=== PATIENT | male | born 1970 | race Caucasian/White ===

== ENCOUNTER 2017-05-15 15:47 | Emergency (ER) | payer OTHER ==
--- NOTE | 2017-05-15 16:36 | ERNOTE ---
GI Bleeding/Rectal Pain ER Date of Service: 05/15/17 Presenting Symptoms: rectal bleeding Time Seen by Provider: 05/15/17 16:17 Source: patient Exam Limitations: no limitations Immunizations: IMMUNIZATION HX Immunizations Up to Date Yes History of Influenza Vaccine No Allergies/Adverse Reactions: Allergies clindamycin Allergy (Verified 05/15/17 16:05) rash Home Medications: HOME MEDICATIONS Allopurinol 300 mg PO PRN 10/05/12 [Last Taken Unknown] Metformin HCl 750 mg PO DAILY 10/05/12 [Last Taken Unknown] Aspirin [Aspirin EC] 81 mg PO DAILY 05/15/17 [Last Taken Unknown] Atorvastatin Calcium [Lipitor] 10 mg PO DAILY 05/15/17 [Last Taken Unknown] Omnicef 05/15/17 [Last Taken Unknown] Phenylephrine HCl/[place] Butter [Preparation H Suppository] 1 each RC BID #10 supp.rect 05/15/17 [Last Taken Unknown] Narrative: 47 yo WM who noted yesterday some BRB per rectum after BM. Occurred today as well. Had had hemrrhoids in the past with similar episode. Denies any pain. Review of Systems - Review of Systems Constitutional: Present: no symptoms reported Respiratory: Present: no symptoms reported Cardiology: Present: no symptoms reported Gastrointestinal/Abdominal: Present: no symptoms reported Neurological: Present: no symptoms reported - Patient's Past Medical History Patient History - Surgical Procedures: Cholecystectomy Patient History - Other: None - Social History Living Situations: home Psych History: No pertinent hx Have you smoked in the past 12 months: No Do you dip or chew tobacco: No Alcohol Use: none Drug Use: none - Immunizations Immunizations Up to Date: Yes History of Influenza Vaccine: No Physical Exam - Physical Exam General Appearance: Present: wd/wn, alert, obese Eye Exam: Normal inspection: bilateral Respiratory: Present: no respiratory distress Cardiovascular/Chest: Present: regular rate, rhythm Rectal Exam: Present: nontender, normal rectal tone, hemorrhoids - internal and slightly tender with small amount of blood ED Progress - Vital Signs Vital Signs: Vital Signs 05/15/17 16:01 Temperature 36.4 C L Pulse Rate 103 H Respiratory 16 Rate Blood Pressure 146/82 O2 Sat by Pulse 95 Oximetry - Progress/Reassessment Chief Complaint: GI Bleed Plan - Plan Plan: Preparation H suppositories Tucks wipes Keep stool soft but formed with colace Follow up with PCP Departure Clinical Impression: Internal bleeding hemorrhoids - Departure Disposition: Home self-care Condition: Good Instructions: Hemorrhoids, [id number] Additional Instructions: Use preparation H suppositories as directed Use tucks wipes Keep stools soft but formed with colace 200 mg daily up to four times a day Follow up with PCP Prescriptions: Phenylephrine HCl/[place] Butter [Preparation H Suppository] 1 each RC BID #10 supp.rect
[2017-05-15 16:43] VITALS: BP 138/72
== END 2017-05-15 16:41 | disposition home or self-care (01) ==
LOC: ER 15:47
DX: K64.8 Other hemorrhoids (principal)